=== PATIENT | male | born 1960 | race Caucasian/White ===

== ENCOUNTER 2022-03-18 14:37 | Emergency (ER) | payer BC, OTHER ==
[2022-03-18] MEDS ORDERED: Diazepam 10 MG/2 ML SYRINGE ONE (15:46)
[2022-03-18] MEDS ORDERED: Ketorolac Tromethamine 30 MG/ML VIAL ONE (15:46)
== END 2022-03-18 17:00 | disposition home or self-care (01) ==
LOC: CSHERS 14:37
DX: M54.50 Low back pain, unspecified (principal); M62.830 Muscle spasm of back; I10 Essential (primary) hypertension
CPT/HCPCS: 96372; 99283; J1885; J3360